=== PATIENT | male | born 1955 | race Caucasian/White ===

== ENCOUNTER 2019-04-28 10:33 | Emergency (ER) | payer MEDICARE, OTHER ==
[~2019-04-28] VITALS: Ht 182.9 cm; Wt 83.9 kg
[2019-04-28] MEDS ORDERED: DOXYCYCLINE MO100 M1 PO (11:11)
[2019-04-28 11:19] VITALS: BP 135/85
== END 2019-04-28 11:19 | disposition home or self-care (01) ==
LOC: M.ERS 10:33
DX: L03.115 Cellulitis of right lower limb (principal); Y92.89 Other specified places as the place of occurrence of the external cause